=== PATIENT | female | born 1975 | race Two or more races ===

== ENCOUNTER 2019-03-15 07:36 | Outpatient (CLI) | payer OTHER | END 2019-03-15 07:40 | disposition home or self-care (01) | LOC: LAB 07:36 | DX: D50.8 Other iron deficiency anemias (principal); I10 Essential (primary) hypertension; D51.0 Vitamin B12 deficiency anemia due to intrinsic factor deficiency; D55.0 Anemia due to glucose-6-phosphate dehydrogenase [G6PD] deficiency; D51.8 Other vitamin B12 deficiency anemias; E03.8 Other specified hypothyroidism; E06.3 Autoimmune thyroiditis; R97.0 Elevated carcinoembryonic antigen [CEA] ==